=== PATIENT | male | born 1990 | race African-American/Black ===

== ENCOUNTER 2019-08-31 | Emergency (ER) | payer SELFPAY ==
[2019-08-31] MEDS ORDERED: PENICILLN VK500 MG PO (11:05)
== END 2019-08-31 11:01 | disposition home or self-care (01) | DRG 153 ==
DX: J02.0 Streptococcal pharyngitis (principal); F17.210 Nicotine dependence, cigarettes, uncomplicated

== ENCOUNTER 2020-04-16 15:04 | Emergency (ER) | payer SELFPAY ==
[~2020-04-16] VITALS: Ht 188 cm; Wt 86.0 kg
[~2020-04-16 15:04] MED LIST: PENICILLN VK500 MG PO
[2020-04-16 16:30] VITALS: BP 145/95
== END 2020-04-16 16:30 | disposition home or self-care (01) | DRG 392 ==
LOC: ED 15:04
DX: R11.10 Vomiting, unspecified (principal); F17.210 Nicotine dependence, cigarettes, uncomplicated

== ENCOUNTER 2024-05-29 20:43 | Emergency (ER) | payer BC ==
[~2024-05-29] VITALS: Ht 188 cm; Wt 125.0 kg
[2024-05-29] MEDS ORDERED: HYDROmorphone HCL 2 MG/AMP IV STA (21:14)
[2024-05-29] MEDS ORDERED: SODIUM CHLORIDE 0.9% 1,000 ML IV STA (21:14)
[2024-05-29] MEDS ORDERED: ONDANSETRON HCl 4 MG/2 ML SDV IV STA ×2 (21:14→22:52)
[2024-05-29 21:35] LABS: BASO% 0.7 % (0-3); EOS% 3.9 % (0-8); HEMATOCRIT 41.3 % (39.0-50.0); HEMOGLOBIN 13.7 g/dl (14.0-18.0); IMMATURE GRANULOCYTES 0.3 % (0.0-5.0); LYMPH% 34.1 % (15-41); MEAN CELL VOLUME 92.4 fL CALC (80.0-100.0); MEAN CORPUSCULAR HGB 30.6 pG CALC (26.0-32.0); MEAN CORPUSCULAR HGB CONC 33.2 g/dL CAL (32.0-36.0); MONO% 9.3 % (2-13); NEUT# 3.54 thou/uL (1.82-7.42); NEUT% 51.7 % (42-76); RED BLOOD COUNT 4.47 mill/uL (4.70-6.10); RED CELL DISTRI WIDTH 12.9 % (11.5-15.5)
[2024-05-29 21:35] LABS: URINE BILIRUBIN - DIPSTICK Negative (NEGATIVE); URINE BLOOD DIPSTICK Negative (NEGATIVE); URINE GLUCOSE - DIPSTICK Negative (NEGATIVE); URINE KETONE Negative (NEGATIVE); URINE LEUK ESTERASE Negative (NEGATIVE); URINE NITRITE - DIPSTICK Negative (Negative); URINE PROTEIN - DIPSTICK Negative (NEG-TRACE); URINE SPECIFIC GRAVITY 1.025
[2024-05-29 21:36] LABS: URINE COLOR Yellow
[2024-05-29 21:47] LABS: ALBUMIN 4.3 g/dL (3.2-5.0); BILIRUBIN, TOTAL 0.8 mg/dL (0.2-1.3); POTASSIUM 4.2 mmol/l (3.5-5.1); TOTAL PROTEIN 7.6 g/dL (6.3-8.2)
[2024-05-29] MEDS ORDERED: PEPCID40 MG PO (23:22)
[2024-05-29] MEDS ORDERED: ZOFRAN4 MG/TAB PO (23:22)
[2024-05-29 23:51] VITALS: BP 130/78
== END 2024-05-29 23:51 | disposition home or self-care (01) | DRG 392 ==
LOC: ED 20:43
PROVIDERS: Emergency Medicine
DX: R10.31 Right lower quadrant pain (principal); R11.2 Nausea with vomiting, unspecified; R42 Dizziness and giddiness; R19.7 Diarrhea, unspecified; R05.9 Cough, unspecified; R68.83 Chills (without fever); R07.81 Pleurodynia; Z72.0 Tobacco use
CPT/HCPCS: J1171; J2405

== ENCOUNTER 2024-07-13 23:16 | Emergency (ER) | payer BC ==
[~2024-07-13] VITALS: Ht 188 cm; Wt 121.6 kg
[~2024-07-13 23:16] MED LIST changes: +PEPCID40 MG PO; +ZOFRAN4 MG/TAB PO
[2024-07-13] MEDS ORDERED: SODIUM CHLORIDE 0.9% 1,000 ML IV STA (23:34)
[2024-07-13] MEDS ORDERED: ACETAMINOPHEN 500 MG TAB PO ONE (23:35)
[2024-07-13] MEDS ORDERED: PROMETHAZINE HCL 25 MG/ML AMP IV ONE (23:35)
[2024-07-13 23:51] LABS: BASO% 0.7 % (0-3); HEMATOCRIT 43.5 % (39.0-50.0); HEMOGLOBIN 14.7 g/dl (14.0-18.0); IMMATURE GRANULOCYTES 0.5 % (0.0-5.0); LYMPH% 22.1 % (15-41); MEAN CORPUSCULAR HGB 30.1 pG CALC (26.0-32.0); MEAN CORPUSCULAR HGB CONC 33.8 g/dL CAL (32.0-36.0); MONO% 8.2 % (2-13); NEUT# 5.81 thou/uL (1.82-7.42); NEUT% 67.5 % (42-76); RED BLOOD COUNT 4.89 mill/uL (4.70-6.10); RED CELL DISTRI WIDTH 12.6 % (11.5-15.5)
[2024-07-14] LABS: ALBUMIN 4.5 g/dL (3.2-5.0); BILIRUBIN, TOTAL 0.7 mg/dL (0.2-1.3); POTASSIUM 4.2 mmol/l (3.5-5.1); TOTAL PROTEIN 8.4 g/dL (6.3-8.2)
[2024-07-14] MEDS ORDERED: PROMETHAZINE HY25 M1 PO (00:19)
[2024-07-14 00:56] VITALS: BP 135/90
== END 2024-07-14 00:56 | disposition home or self-care (01) | DRG 866 ==
LOC: ED 23:16
PROVIDERS: Family Medicine
DX: B34.9 Viral infection, unspecified (principal); Z20.822 Contact with and (suspected) exposure to COVID-19
CPT/HCPCS: J2550